=== PATIENT | female | born 2000 | race Caucasian/White ===

== ENCOUNTER → 2021-04-05 | Outpatient (CLI) | payer BC | LOC: CATH 09:41 | DX: R55 Syncope and collapse (principal) ==

== ENCOUNTER → 2021-04-06 | Outpatient (CLI) | payer BC | LOC: HEART 5 03-29 08:00 | DX: R55 Syncope and collapse (principal); I07.1 Rheumatic tricuspid insufficiency | CPT/HCPCS: 93306 ==

== ENCOUNTER → 2021-06-06 | Day surgery (SDC) | payer BC ==
[~2021-06-06] MED LIST: ADDERALL 10 MG10 MG PO; ADDERALL 20 MG20 MG PO; BUSPIRONE HCL15 MG PO; BUSPIRONE HCL7.5 MG PO; INDERAL TAB 2020 MG PO; LEVOCETIRIZINE D5 MG PO; SPRINTEC 28 DA1 EACH PO
== END | disposition home or self-care (01) ==
LOC: CATH 08:00
DX: R93.1 Abnormal findings on diagnostic imaging of heart and coronary circulation (principal); R00.2 Palpitations; R55 Syncope and collapse; R06.02 Shortness of breath; R94.31 Abnormal electrocardiogram [ECG] [EKG]; F32.A Depression, unspecified; F41.9 Anxiety disorder, unspecified; J30.9 Allergic rhinitis, unspecified; Z87.891 Personal history of nicotine dependence; Z20.822 Contact with and (suspected) exposure to COVID-19
CPT/HCPCS: 84703; 93005; 93312; 93320; J1200; J2250; J2310; J3010; U0002